=== PATIENT | male | born 1980 | race Caucasian/White ===

== ENCOUNTER → 2020-10-15 12:15 | Outpatient (CLI) | payer BC, SELFPAY ==
--- NOTE | 2020-10-15 12:42 | DI.ECHO.S_ITS ---
:Reason For Study: Fam History of CAD : :Ordering Physician: DILLON : :SAE Performed By: Abiodun Dunbar : :Referring: SAE CARRANZA : + + Interpretation Summary Normal LV size. The ejection fraction is estimated to be 55-60%. There are no focal wall motion abnormalities. Diastolic parameters suggest probable normal left ventricular diastolic function and normal filling pressures. Normal right ventricular function. There is mild tricuspid regurgitation.The right ventricular systolic pressure is estimated to be at least 22 mmHg based on an estimated right atrial pressure of 3 mm Hg. There is no pericardial effusion. The patient was in sinus rhythm with heart rates between 46-55 bpm during the exam. Procedure: A two-dimensional transthoracic echocardiogram with color flow and Doppler was performed. The study quality was technically adequate. There is no prior echocardiogram noted for this patient. The patient was in sinus rhythm with heart rates between 46-55 bpm during the exam. Left Ventricle: The left ventricle is normal in size and wall thickness. There is no thrombus. Left ventricular systolic function is normal. The ejection fraction is estimated to be 55-60%. There are no focal wall motion abnormalities. Diastolic parameters suggest probable normal left ventricular diastolic function and normal filling pressures. Right Ventricle: The right ventricle is normal in size and function. Atria: Both atria are normal in size. There is no Doppler evidence for an interatrial shunt. Mitral Valve: The mitral valve is normal in structure and function. There is trace mitral regurgitation. Aortic Valve: The aortic valve is normal in structure and function. There is trace aortic regurgitation. Tricuspid Valve: The tricuspid valve is normal in structure and function. There is mild tricuspid regurgitation. The right ventricular systolic pressure is estimated to be at least 22 mmHg based on an estimated right atrial pressure of 3 mm Hg. Pulmonic Valve: The pulmonic valve is not well visualized. There is a trace or physiologic amount of pulmonic regurgitation. Great Vessels: The aortic root is normal size. The dimensions of the ascending aorta are normal. The IVC is of normal diameter and collapses greater than 50% with a sniff. This suggests a low right atrial pressure of 3 mm Hg. Pericardium/ Pleura There is no pericardial effusion. There is no pleural effusion. MMode/2D Measurements & Calculations LVIDd: 4.9 cm LVOT diam: 2.3 cm LVIDs: 3.4 cm Ao root diam: 3.7 cm FS: 30.6 % asc Aorta Diam: 3.1 cm IVSd: 1.1 cm LVPWd: 1.0 cm LV espinal. diameter/BSA (cm/m^2): 2.4 LV sys. diameter/BSA (cm/m^2): 1.6 LA dimension: 3.5 cm RA long axis: 5.6 cm LA A2 area: 22.7 cm2 LA A4 area: 20.7 cm2 LA length (vol): 5.4 cm LA vol: 73.6 ml LA vol index: 35.7 ml/m2 TAPSE_phl: 2.8 cm Doppler Measurements & Calculations Ao V2 max: 109.0 cm/sec LVOT Max Chaitanya: 101.0 cm/sec Ao V2 mean: 79.1 cm/sec LV V1 max P.1 mmHg Ao max P.0 mmHg LV V1 VTI: 21.7 cm Ao mean P.0 mmHg SANDER(I,D): 3.7 cm2 Ao V2 VTI: 24.2 cm SANDER(V,D): 3.8 cm2 sev ratio: 0.90 SANDER indexed to BSA (cm^2/m^2): 1.8 MV E max chaitanya: 72.8 cm/sec TR max chaitanya: 216.0 cm/sec MV A max chaitanya: 44.6 cm/sec TR max P.7 mmHg MV E/A: 1.6 PA V2 max: 91.8 cm/sec Med Peak E' Chaitanya: 10.0 cm/sec PA V2 mean: 71.4 cm/sec E/E' med: 7.3 PA mean P.0 mmHg Lat Peak E' Chaitanya: 14.7 cm/sec PA pr(Accel): 30.4 mmHg E/E' lat: 5.0 E/e' average: 6.1 MV dec time: 0.17 sec SV(LVOT): 90.2 ml AV VR_phl: 0.93 SANDER(VTI)/BSA_phl: 1.8 MV P1/2t-pr_phl: 49.0 msec Reading Physician:06:12 PM
== END ==
PROVIDERS: Family Provider Family Medicine; PCP Family Medicine; Referring Provider Family Medicine; Visit Provider Family Medicine
DX: I07.1 Rheumatic tricuspid insufficiency (principal); Z82.49 Family history of ischemic heart disease and other diseases of the circulatory system
CPT/HCPCS: 93306

== ENCOUNTER → 2022-05-31 08:44 | Outpatient (CLI) | payer OTHER, SELFPAY ==
[2022-05-31 10:10] LABS: Cholesterol 225 mg/dL (140-199); Glucose 99 mg/dL (70-100); HDL Cholesterol 56 mg/dL (40-60); LDL Cholesterol Calculated 149 mg/dL (<100); Triglycerides 98 mg/dL (35-150)
== END ==
PROVIDERS: Family Provider Family Medicine; PCP Family Medicine; Referring Provider Family Medicine; Visit Provider Family Medicine
DX: R73.9 Hyperglycemia, unspecified (principal); E78.5 Hyperlipidemia, unspecified
CPT/HCPCS: 36415; 80061; 82947

== ENCOUNTER 2022-06-17 09:14 | Day surgery (SDC) | payer OTHER, SELFPAY ==
[2022-06-17 09:33] VITALS: BP 118/68; PULSE 50; RESP 17; TEMP 36.4; O2SAT 99; BMI 23.0
[2022-06-17] MEDS: LACTATED RINGERS 1,000 ML 42 ML IV (09:46)
--- NOTE | 2022-06-17 11:13 | PM.HP.1 ---
History of Present Illness History of Present Illness Date Patient Seen: 06/17/22 Time Patient Seen: 11:13 Chief complaint: Screening Colonoscopy Narrative: Mr. Powers presents today for screening colonoscopy. He is never had a colonoscopy before but his sister was diagnosed colon cancer at the age of 44. She is been treated and in remission now. Otherwise there is some question of colon cancer history in his grandfather and he has not had any concerning symptoms. [facility] Surgical History (Updated 06/06/17 @ 06:14 by Conversion Provider) Status post knee surgery Family History (Updated 04/15/17 @ 00:00 by Conversion Provider) Grandfather Mental health problem Alzheimer's disease Social History household members: spouse Smoking Status: Never smoker Meds Home Medications and Allergies Home Medications Medication Instructions Recorded Confirmed Type No Known Home Medications 06/06/22 History Allergies Allergy/AdvReac Type Severity Reaction Status Date / Time No Known Allergies Allergy Uncoded 06/06/22 13:27 Exam Vital Signs (past 8 hours): - 06/17/22 09:33 Temperature 97.6 F Pulse Rate 50 L Respiratory Rate 17 Blood Pressure 118/68 Pulse Oximetry 99 Oxygen Delivery Method Room Air Oxygen Delivery Method Room Air Const General: healthy appearing and comfortable Nutritional Appearance: average body habitus and well nourished Orientation: alert, awake and oriented x3 HENMT Head: normal to inspection Resp Effort & Inspection: normal respiratory effort and able to speak in complete sentences GI Palpation: soft and No tender Assessment & Plan Assessment and plan (1) Family history of colon cancer: Status: Acute (2) Colon cancer screening: Status: Acute Assessment & Plan narrative: Presents today for screening colonoscopy I discussed the risks benefits and alternatives including but not limited to perforation of the colon and an incomplete exam he fully understands these risks and would like to proceed.
[2022-06-17 11:55] VITALS: BP 106/65; PULSE 51; RESP 12; TEMP 36.2; O2SAT 98
[2022-06-17 11:59] VITALS: BP 105/63; PULSE 51; RESP 13; O2SAT 98
--- NOTE | 2022-06-17 12:02 | P.OP.COLON_ITS ---
Operative Date/Time/Diagnoses Date of procedure: 06/17/22 Pre-op diagnosis: Colon cancer screening and family history of colon cancer in sister age 44 Post-op diagnosis: same Procedure & Clinicians Study performed: Colonoscopy Same procedure as scheduled: Yes Indications: History of colon cancer in the family Surgeon: Kristen Slaughter Procedure Notes Procedure in detail: Patient was taken to the endoscopy suite and placed in a left lateral decubitus position. A time-out was performed and conscious sedation was induced to maintain by our anesthesia provider. Digital rectal exam was performed there were no masses or strictures. Colonoscope was then introduced into the anal canal and advanced through to the cecum. A photograph of the appendiceal orifice was obtained. The prep was good [place] bowel prep score of 2. The scope was then withdrawn for a total of 10 minutes. No polyps were seen. There were no other abnormalities. The scope was retroflexed and a photograph was obtained. Patient tolerated the procedure well and went in good condition to the postoperative care unit Specimen(s): none sent Complications: none Post-procedure Recommendations: Colonoscopy in 5 years Plan for aftercare: Five year follow-up due to family history of colon cancer
[2022-06-17 12:04] VITALS: BP 101/71; PULSE 53; RESP 14; O2SAT 98
[2022-06-17 12:06] VITALS: BP 105/74; PULSE 54; RESP 16; O2SAT 99
== END 2022-06-17 12:24 | disposition home or self-care (01) ==
PROVIDERS: Family Provider Family Medicine; PCP Family Medicine; Referring Provider Surgery; Visit Provider Surgery
PROC: 0DJD8ZZ Inspection of Lower Intestinal Tract, Via Natural or Artificial Opening Endoscopic (ICD-10-PCS; CPT 45378; principal; 2022-06-17 10:15)
DX: Z12.11 Encounter for screening for malignant neoplasm of colon (principal); Z80.0 Family history of malignant neoplasm of digestive organs
CPT/HCPCS: 45378; J2704

== ENCOUNTER → 2024-05-30 09:14 | Outpatient (CLI) | payer OTHER, SELFPAY | LOC: LAB 09:15 | PROVIDERS: Family Provider Family Medicine; PCP Family Medicine; Visit Provider Physician Assistant | DX: J02.9 Acute pharyngitis, unspecified (principal) | CPT/HCPCS: 87070; 87077 ==